=== PATIENT | male | born 1955 | race Caucasian/White ===

== ENCOUNTER 2023-06-02 17:00 | Inpatient (IN) | payer MEDICARE, OTHER ==
[~2023-06-02] VITALS: Ht 180.3 cm; Wt 65.4 kg
[2023-06-02 17:41] LABS: EOSINOPHILS # (AUTO) 0.3 K/uL (0.0-0.7); EOSINOPHILS % (AUTO) 7.1 % (0.0-6.0); HEMATOCRIT 41 % (39-51); HEMOGLOBIN 13.9 g/dL (13.5-17.5); LYMPHOCYTES # (AUTO) 0.7 K/uL (0.8-4.8); LYMPHOCYTES % (AUTO) 17.9 % (20.0-44.0); MEAN CORPUSCULAR HEMOGLOBIN 32 PG (26.0-33.0); MEAN CORPUSCULAR HGB CONC 34 g/dl (31.0-36.0); MEAN CORPUSCULAR VOLUME 94 fL (80-96); MONOCYTES # (AUTO) 0.5 K/uL (0.1-1.30); MONOCYTES % (AUTO) 11.8 % (2.0-12.0); NEUTROPHILS # (AUTO) 2.4 K/uL (1.8-8.9); NEUTROPHILS % (AUTO) 62.2 % (43.0-81.0); PLATELET COUNT (AUTO) 225 K/uL (150-450); RED BLOOD CELL COUNT(AUTO) 4.38 MIL/uL (4.5-6.0); RED CELL DISTRIBUTION WIDTH 14.3 % (11.5-15.0); WHITE BLOOD COUNT (AUTO) 3.8 K/uL (4.3-11.0)
[2023-06-02 17:54] LABS: ALANINE AMINOTRANSFERASE 27 U/L (12-78); ALBUMIN 3.5 g/dL (3.4-5.0); ALCOHOL, BLOOD < 3 mg/dL (0-10); ALKALINE PHOSPHATASE 121 U/L (46-116); ASPARTATE AMINOTRANSFERASE 20 U/L (15-37); BILIRUBIN,DIRECT 0.1 mg/dL (0.0-0.2); BILIRUBIN,TOTAL 0.4 mg/dL (0.2-1.0); CARBON DIOXIDE 31 mmol/L (21-32); CHLORIDE 94 mmol/L (98-107); CREATININE 0.6 mg/dL (0.6-1.3); GLUCOSE 94 mg/dL (74-106); POTASSIUM 4.2 mmol/L (3.5-5.1); SALICYLATE 4.8 mg/dL (2.8-20.0); SODIUM SERUM 128 mmol/L (136-145); UREA NITROGEN, BLOOD 11 mg/dL (7-18)
[2023-06-02] MEDS ORDERED: DIVA-78 PO (18:00)
[2023-06-02] MEDS ORDERED: UMEC1BLS IH (18:00)
[2023-06-02] MEDS ORDERED: QUET400T PO (18:00)
[2023-06-02] MEDS ORDERED: ALBUTEROL-BUDESONIDE IH (18:00)
[2023-06-02] MEDS ORDERED: RISP3TAB61 PO (18:00)
[2023-06-02 18:27] LABS: THYROID STIMULATING HORMONE 2.445 uIU/mL (0.358-3.74)
[2023-06-02] MEDS: VALACYCLOVIR HCL 500 MG TABLET PO ONE (20:11)
[2023-06-02 21:01] LABS: APPEARANCE,URINE CLEAR (CLEAR); BILIRUBIN,URINE NEGATIVE (NEGATIVE); BLOOD, URINE NEGATIVE Ery/uL (NEGATIVE); COLOR,URINE YELLOW (YELLOW); KETONES,URINE NEGATIVE (NEGATIVE); LEUKOCYTE ESTERASE ,URINE NEGATIVE (NEGATIVE); NITRITE, URINE NEGATIVE (NEGATIVE); PROTEIN,URINE NEGATIVE (NEGATIVE); UGLUCOSE NEGATIVE (NEGATIVE); UROBILINOGEN,URINE 0.2 EU/dL (0.2)
[2023-06-02 21:09] LABS: AMPHETAMINE, URINE NEGATIVE (NEGATIVE); BARBITURATE, URINE NEGATIVE (NEGATIVE); BENZODIAZEPINE, URINE NEGATIVE (NEGATIVE); CANNABINOID, URINE NEGATIVE (NEGATIVE); COCCAINE, URINE NEGATIVE (NEGATIVE); OPIATE, URINE NEGATIVE (NEGATIVE); PHENCYCLIDINE SCREEN,URINE NEGATIVE (NEGATIVE)
[2023-06-02 21:30] VITALS: BP 130/97; TEMP 97.9; O2SAT 94
[2023-06-02] MEDS ORDERED: ACETAMINOPHEN 325 MG TABLET PO PRN (23:00)
[2023-06-02] MEDS ORDERED: MAG HYDROX/AL HYDROX/SIMETH 30 ML UDC PO PRN (23:00)
[2023-06-02] MEDS ORDERED: ZOLPIDEM TARTRATE 5 MG TABLET PO PRN (23:00)
[2023-06-02] MEDS ORDERED: ONDANSETRON HCL/PF 4 MG/2 ML VIAL IVP PRN (23:00)
[2023-06-02] MEDS ORDERED: Z GUARD REMEDY 4 OZ OINT TP PRN (23:00)
[2023-06-02] MEDS ORDERED: MAGNESIUM HYDROXIDE 30 ML UDC PO PRN (23:00)
[2023-06-02] MEDS ORDERED: HYDROCODONE/APAP 5/325MG TABLET PO PRN (23:00)
[2023-06-03 08:09] LABS: BASOPHILS # (AUTO) 0.1 K/uL (0.0-0.2); BASOPHILS % (AUTO) 1.2 % (0.0-2.0); EOSINOPHILS # (AUTO) 0.2 K/uL (0.0-0.7); EOSINOPHILS % (AUTO) 4.6 % (0.0-6.0); HEMATOCRIT 39 % (39-51); HEMOGLOBIN 13.7 g/dL (13.5-17.5); LYMPHOCYTES # (AUTO) 0.5 K/uL (0.8-4.8); LYMPHOCYTES % (AUTO) 12.8 % (20.0-44.0); MEAN CORPUSCULAR HEMOGLOBIN 32 PG (26.0-33.0); MEAN CORPUSCULAR HGB CONC 35 g/dl (31.0-36.0); MEAN CORPUSCULAR VOLUME 92 fL (80-96); MONOCYTES # (AUTO) 0.5 K/uL (0.1-1.30); NEUTROPHILS # (AUTO) 2.8 K/uL (1.8-8.9); NEUTROPHILS % (AUTO) 69.4 % (43.0-81.0); PLATELET COUNT (AUTO) 221 K/uL (150-450); RED BLOOD CELL COUNT(AUTO) 4.23 MIL/uL (4.5-6.0); RED CELL DISTRIBUTION WIDTH 13.8 % (11.5-15.0); WHITE BLOOD COUNT (AUTO) 4.1 K/uL (4.3-11.0)
[2023-06-03 08:27] LABS: CALCIUM, SERUM 8.7 mg/dL (8.5-10.1); CREATININE 0.6 mg/dL (0.6-1.3); MAGNESIUM 1.9 mg/dL (1.8-2.4); POTASSIUM 4.2 mmol/L (3.5-5.1)
[2023-06-03 08:30] VITALS: BP 129/89; TEMP 97.7; O2SAT 99
[2023-06-03] MEDS: PANTOPRAZOLE 40 MG TABLET.DR PO SCH (08:33)
[2023-06-03 08:40] LABS: THYROID STIMULATING HORMONE 1.733 uIU/mL (0.358-3.74)
[2023-06-03] MEDS: DIVALPROEX SODIUM 500 MG TABLET.DR PO SCH (09:13)
[2023-06-03] MEDS: risperiDONE 1 MG TABLET PO SCH (09:14)
[2023-06-03] MEDS: QUETIAPINE FUMARATE 100 MG TABLET PO SCH (09:14)
[2023-06-03] MEDS: VALACYCLOVIR HCL 500 MG TABLET PO SCH (09:14)
[2023-06-03] MEDS ORDERED: ALBUTEROL FS 2.5 MG/0.5 ML VIAL.NEB INH PRN (12:30)
[2023-06-03 16:00] VITALS: BP 116/87; TEMP 97.7; O2SAT 99
[2023-06-03 20:00] VITALS: BP 126/82; TEMP 98.1; O2SAT 97
[2023-06-03] MEDS: IPRATROPIUM NEB FS 0.5 MG/2.5 ML AMPUL.NEB NEB SCH (20:18)
[2023-06-03 20:28] VITALS: O2SAT 92
[2023-06-03 20:43] VITALS: O2SAT 95; O2SAT 98
[2023-06-04] VITALS (7 sets, daily range): BP systolic 120–131; BP diastolic 72–93; TEMP 97.4–97.7; O2SAT 95–98
[2023-06-04] MEDS: ALBUTEROL FS 2.5 MG/0.5 ML VIAL.NEB INH SCH (13:08)
[2023-06-04 14:34] LABS: HIV-1 p24 ANTIGEN NON REACTIVE (NONREACTIVE); HIV-1/2 ANTIBODY NON REACTIVE (NONREACTIVE)
[2023-06-05] VITALS (10 sets, daily range): BP systolic 85–110; BP diastolic 75–83; TEMP 97.7; O2SAT 92–99
[2023-06-05 08:55] LABS: BASOPHILS % (AUTO) 0.9 % (0.0-2.0); EOSINOPHILS # (AUTO) 0.2 K/uL (0.0-0.7); EOSINOPHILS % (AUTO) 4.9 % (0.0-6.0); HEMATOCRIT 40 % (39-51); HEMOGLOBIN 13.7 g/dL (13.5-17.5); LYMPHOCYTES # (AUTO) 0.4 K/uL (0.8-4.8); LYMPHOCYTES % (AUTO) 12.4 % (20.0-44.0); MEAN CORPUSCULAR HEMOGLOBIN 32 PG (26.0-33.0); MEAN CORPUSCULAR HGB CONC 34 g/dl (31.0-36.0); MEAN CORPUSCULAR VOLUME 94 fL (80-96); MONOCYTES # (AUTO) 0.5 K/uL (0.1-1.30); MONOCYTES % (AUTO) 14.9 % (2.0-12.0); NEUTROPHILS # (AUTO) 2.3 K/uL (1.8-8.9); NEUTROPHILS % (AUTO) 66.9 % (43.0-81.0); PLATELET COUNT (AUTO) 231 K/uL (150-450); RED BLOOD CELL COUNT(AUTO) 4.31 MIL/uL (4.5-6.0); RED CELL DISTRIBUTION WIDTH 13.9 % (11.5-15.0); WHITE BLOOD COUNT (AUTO) 3.4 K/uL (4.3-11.0)
[2023-06-05 09:15] LABS: ALBUMIN 3.3 g/dL (3.4-5.0); BILIRUBIN,TOTAL 0.5 mg/dL (0.2-1.0); CALCIUM, SERUM 8.7 mg/dL (8.5-10.1); CREATININE 0.5 mg/dL (0.6-1.3); MAGNESIUM 1.9 mg/dL (1.8-2.4); PHOSPHORUS 3.5 mg/dL (2.5-4.9); POTASSIUM 4.3 mmol/L (3.5-5.1); TOTAL PROTEIN, SERUM 6.4 g/dL (6.4-8.2)
[2023-06-05 12:27] LABS: INR 1.04 (0.91-1.10); PARTIAL THROMBOPLASTIN TIME 29.3 SEC (24.3-34.3)
[2023-06-05] MEDS: CALAMINE 118 ML BOTTLE TP SCH (14:30)
[2023-06-06] VITALS (7 sets, daily range): BP systolic 116; BP diastolic 85; TEMP 97.9; O2SAT 92–100
[2023-06-06] MEDS: predniSONE 20 MG TABLET PO SCH (09:07)
[2023-06-06] MEDS ORDERED: CALA177L16 TP (14:55)
[2023-06-06] MEDS ORDERED: PRED20TA PO (14:55)
[2023-06-06] MEDS ORDERED: VALA500T PO (14:55)
== END 2023-06-06 17:35 | DRG 595 ==
LOC: ER 17:00 → MED 21:18
PROVIDERS: ADMIT Student in an Organized Health Care Education/Training Program; ATTEND Nurse Practitioner Acute Care
DX: B02.9 Zoster without complications (principal); G93.41 Metabolic encephalopathy; E87.1 Hypo-osmolality and hyponatremia; J44.9 Chronic obstructive pulmonary disease, unspecified; F41.9 Anxiety disorder, unspecified; Z20.822 Contact with and (suspected) exposure to COVID-19; R27.8 Other lack of coordination; R26.9 Unspecified abnormalities of gait and mobility; Z79.51 Long term (current) use of inhaled steroids; Z79.899 Other long term (current) drug therapy; Z53.20 Procedure and treatment not carried out because of patient's decision for unspecified reasons; F25.0 Schizoaffective disorder, bipolar type
CPT/HCPCS: 36415; 70450-TC; 71045-TC; 80048-TC; 80053-TC; 80061-TC; 80076-TC; 82962-TC; 83735-TC; 84100-TC; 84443-TC; 84484-TC; 85025-TC; 85610-TC; 85730-TC; 86803; 87081-TC; 87086-TC; 87806; 94799-TC; 97112-TC; 97116-TC; 97530-TC; G0378; G0480